=== PATIENT | female | born 1965 | race Hispanic/Latino ===

== ENCOUNTER 2022-01-21 19:43 | Emergency (ER) | payer BC, SELFPAY ==
[2022-01-21 20:41] LABS: Absolute Lymphocytes (CBC) 2.4 K/uL (0.7-4.9); Hematocrit 41.2 % (36.0-45.0); Lymphocytes % 20.5 % (15.3-44.8); MPV 7.3 fL (7.6-11.3); RBC Red Blood Cell Count 4.61 M/uL (3.86-4.86)
[2022-01-21] MEDS ORDERED: ONDANSETRON 4 MG/2 ML VIAL ONE (20:43)
[2022-01-21] MEDS ORDERED: MORPHINE 4 MG/ML SYR ONE (20:43)
[2022-01-21] MEDS ORDERED: NA CHLORIDE 0.9% 1,000 ML ONE (20:43)
[2022-01-21 20:47] LABS: Protime INR 1.05
[2022-01-21 20:58] LABS: Albumin 3.7 g/dL (3.4-5.0); Bilirubin Direct 0.1 mg/dL (0-0.2); Bilirubin Total 0.3 mg/dL (0.2-1.0); Potassium 4.3 mmol/L (3.5-5.1); Protein, Total 7.9 g/dL (6.4-8.2)
--- NOTE | 2022-01-21 21:08 | RAD REPORT ---
EXAM DESCRIPTION: RAD - Ankle Right 3 View - 01/21/2022 9:00 pm CLINICAL HISTORY: trauma COMPARISON: No comparisons FINDINGS/IMPRESSION: No acute fracture. No malalignment. Calcaneal spurring.
--- NOTE | 2022-01-21 21:08 | RAD REPORT ---
EXAM DESCRIPTION: RAD - Forearm Left - 01/21/2022 9:00 pm CLINICAL HISTORY: trauma COMPARISON: No comparisons FINDINGS/IMPRESSION: Distal radial metaphyseal fracture which is impacted. This is nondisplaced.
--- NOTE | 2022-01-21 21:09 | RAD REPORT ---
EXAM DESCRIPTION: RAD - Tib Fib Right - 01/21/2022 9:01 pm CLINICAL HISTORY: trauma COMPARISON: No comparisons FINDINGS: No acute fracture. No malalignment. No significant focal degenerative changes. IMPRESSION: No acute osseous abnormality involving the tibia or fibula.
--- NOTE | 2022-01-21 21:52 | RAD REPORT ---
EXAM DESCRIPTION: CT - Head Brain Wo Cont - 01/21/2022 9:38 pm CLINICAL HISTORY: TRAUMA COMPARISON: No comparisons TECHNIQUE: All CT scans are performed using dose optimization technique as appropriate and may inclu de automated exposure control or mA/KV adjustment according to patient size. FINDINGS: No intracranial hemorrhage, hydrocephalus or extra-axial fluid collection.No areas of brai n edema or evidence of midline shift. The paranasal sinuses and mastoids are clear. The calvarium is intact. IMPRESSION: No acute intracranial abnormality.
--- NOTE | 2022-01-21 21:54 | RAD REPORT ---
EXAM DESCRIPTION: CT - C Spine Wo Con - 01/21/2022 9:38 pm CLINICAL HISTORY: TRAUMA COMPARISON: No comparisons TECHNIQUE: CT Scan was obtained of the cervical spine without contrast. Reformats were provided in t he sagittal and coronal plane. FINDINGS: No acute fracture of the cervical spine. No traumatic malalignment. No prevertebral edema. Mild cervical spondylosis. Of note, there is a posterior disc osteophyte complex at the C5-6 level w hich results in mild central spinal stenosis. Neural foraminal narrowing is also noted at this level. No suspicious thyroid nodules or lymphadenopathy. The lung apices are clear. IMPRESSION: No fracture or traumatic malalignment of the cervical spine.
--- NOTE | 2022-01-21 21:57 | RAD REPORT ---
EXAM DESCRIPTION: CT - Thorax W/ Con - 01/21/2022 9:38 pm CLINICAL HISTORY: TRAUMA COMPARISON: <Comparisons> FINDINGS: Chest Wall: No suspicious thyroid nodules or pathologic lymphadenopathy. Lungs: No acute abnormality. Pleura: No significant effusions or pneumothorax. Mediastinum/kaylee: No pathologic lymphadenopathy. Pulmonary arteries/Aorta: No filling defect identified. No aortic aneurysm. Heart: No significant pericardial effusion. Normal heart size. Bones: No acute abnormality. All CT scans are performed using dose optimization technique as appropriate and may include automated exposure control or mA/KV adjustment according to patient size. IMPRESSION: No evidence of significant trauma to the chest .
--- NOTE | 2022-01-21 22:02 | RAD REPORT ---
EXAM DESCRIPTION: CTAbdomen Pelvis W Contrast - 01/21/2022 9:38 pm CLINICAL HISTORY: TRAUMA COMPARISON: No comparisonsNo comparisons TECHNIQUE: CT of the abdomen and pelvis was performed. All CT scans are performed using dose optimization technique as appropriate and may include automated exposure control or mA/KV adjustment according to patient size. FINDINGS: Lower chest: No acute abnormality. Liver: Hepatic steatosis. Biliary: Cholecystectomy. Stomach: No significant focal abnormality. Duodenum: No significant focal abnormality. Pancreas: No significant abnormality. Spleen: No significant abnormality. Adrenal: No suspicious lesions. Kidney/ureter: No hydronephrosis. No renal calculi. Retroperitoneum: No retroperitoneal adenopathy. Vascular: No aneurysm. Bowel: No significant focal abnormality. Normal appendix. Peritoneum: No ascites or free air. Bladder: Grossly unremarkable. Reproductive: Cystic structure in the adnexa measuring 5.4 cm is simple in attenuation. It is in the rectouterine pouch. Bones: No acute fracture. Other: n/a IMPRESSION: No evidence of significant trauma to the abdomen or pelvis. Simple appearing cystic structure in the pelvis. By CT, it appears to be simple fluid and likely repr esenting a cyst. It may be adnexal in etiology. The patient should have a nonemergent pelvic ultrasou nd for further evaluation.
[2022-01-21 22:48] LABS: Urine Blood Negative (Negative); Urine Glucose Negative (Negative); Urine Protein Negative (Negative); Urine Specific Gravity 1.015 (1.005-1.030)
[2022-01-21 22:50] LABS: Urine Blood Negative (Negative); Urine Glucose Negative (Negative); Urine Protein Negative (Negative); Urine Specific Gravity 1.015 (1.005-1.030)
[2022-01-21] MEDS ORDERED: TETANUS & DIPHTHERIA TOX,ADULT 0.5 ML VIAL ONE (23:07)
--- NOTE | 2022-01-21 23:11 | ER ---
Nurse's Notes [facility] Name: Gabriella Sims Age: 57 yrs Sex: Female : 1965 Arrival Date: 01/21/2022 Time: 19:45 Bed 4 Private MD: Diagnosis: Fall (on) (from) other stairs and steps;Distal radius Fracture;Contusion of left lower leg;Contusion of right ankle Presentation: 01/21 19:46 Chief complaint: Patient states: "I was walking down the stairs at the [facility] and as6 the platform broke. Me and my fell about 10 feet" pt c/o left leg pain, left arm pain. pt states she did hit her head but denies LOC. Coronavirus screen: At this time, the client does not indicate any symptoms associated with coronavirus-19. Ebola Screen: No symptoms or risks identified at this time. Initial Sepsis Screen: Does the patient meet any 2 criteria? No. Patient's initial sepsis screen is negative. Does the patient have a suspected source of infection? No. Patient's initial sepsis screen is negative. Risk Assessment: Do you want to hurt yourself or someone else? Patient reports no desire to harm self or others. Onset of symptoms was January 21, 2022. 19:46 Method Of Arrival: EMS: [facility] as6 19:46 Acuity: JOB 2 as6 19:52 Care prior to arrival: None. Mechanism of Injury: Fall from 1st story approximately 10 as6 feet. Trauma event details: Injury occurred: at home. Trauma Activation: Alert Physician: ED Physician; Name: ; Notified At: ; Arrived At: Physician: General Surgeon; Name: ; Notified At: ; Arrived At: Physician: Radiology; Name: ; Notified At: ; Arrived At: Physician: Respiratory; Name: ; Notified At: ; Arrived At: Physician: Lab; Name: ; Notified At: ; Arrived At: Historical: - Allergies: 19:51 Lortab; as6 - Home Meds: 19:51 [place] Thyroid 30 mg Oral tab 1 tab once daily [Active]; as6 - PMHx: 19:51 Hypothyroidism; as6 - PSHx: 19:51 section; Cholecystectomy; as6 - Immunization history:: Client reports receiving the 2nd dose of the Covid vaccine, moderna. - Social history:: Smoking status: Patient denies any tobacco usage or history of. - Immunization history: Last tetanus immunization: unknown. Screenin:52 Abuse screen: Denies threats or abuse. Denies injuries from another. Nutritional as6 screening: No deficits noted. Tuberculosis screening: No symptoms or risk factors identified. Fall Risk Fall in past 12 months (25 points). Total Robison Fall Scale indicates Low Risk Score (25-44 pts). Fall prevention measures have been instituted. Side Rails Up X 2 Frequent Obs/Assesments occuring As available Patient and Family Educated on Fall Prevention Program and strategies. Primary Survey: 19:57 NO uncontrolled hemorrhage observed. A: The patient is alert. Airway: patent. as6 Breathing/Chest: Respiratory pattern: regular, Respiratory effort: spontaneous. Circulation: Pulses: palpable . Disability Alert. Exposure/Environment: A warming method has been applied: A warm blanket has been provided to the patient. Reassessment Airway Airway Patent Breathing/Chest Respiratory pattern Regular Respiratory effort Spontaneous Circulation Pulses Palpable Disability Alert. Assessment: 19:56 General: Appears in no apparent distress. uncomfortable, Behavior is cooperative, as6 anxious. Pain: Complains of pain in left arm and left leg. Neuro: Level of Consciousness is awake, alert, obeys commands, Oriented to person, place, time, situation. Cardiovascular: Capillary refill < 3 seconds Patient's skin is warm and dry. Respiratory: Airway is patent Trachea midline Respiratory effort is even, unlabored, Respiratory pattern is regular, symmetrical. Musculoskeletal: Reports pain in left arm and left leg. 20:02 General: placed c-collar on pt. pt removed c-collar herself saying "my neck isn't as6 hurting, I don't want to wear this" educated pt on importance of wearing c-collar, pt still refused . Vital Signs: 19:46 BP 178 / 83; Pulse 102; Resp 20 S; Temp 98.7(O); Pulse Ox 97% on R/A; Weight 99.79 kg as6 (R); Height 5 ft. 1 in. (154.94 cm) (R); Pain 6/10; 20:53 BP 134 / 78; Pulse 100; Resp 19 S; Pulse Ox 97% on R/A; as6 22:07 BP 118 / 41; Pulse 95; Resp 18 S; Pulse Ox 95% on R/A; as6 23:00 BP 121 / 66; Pulse 94; Resp 18 S; Pulse Ox 100% on R/A; as6 19:46 Body Mass Index 41.57 (99.79 kg, 154.94 cm) as6 Jacob Coma Score: 19:58 Eye Response: spontaneous(4). Verbal Response: oriented(5). Motor Response: obeys as6 commands(6). Total: 15. 20:53 Eye Response: spontaneous(4). Verbal Response: oriented(5). Motor Response: obeys as6 commands(6). Total: 15. 23:33 Eye Response: spontaneous(4). Verbal Response: oriented(5). Motor Response: obeys as6 commands(6). Total: 15. Trauma Score (Adult): 19:58 Eye Response: spontaneous(1); Verbal Response: oriented(1); Motor Response: obeys as6 commands(2); Systolic BP: > 89 mm Hg(4); Respiratory Rate: 10 to 29 per min(4); Jacob Score: 15; Trauma Score: 12 23:33 Eye Response: spontaneous(1); Verbal Response: oriented(1); Motor Response: obeys as6 commands(2); Systolic BP: > 89 mm Hg(4); Respiratory Rate: 10 to 29 per min(4); Jacob Score: 15; Trauma Score: 12 ED Course: 19:45 Patient arrived in ED. as6 19:45 Jamie Ray MD is Attending Physician. 7 19:46 Jani Logan RN is Primary Nurse. as6 19:51 Triage completed. as6 19:52 Arm band placed on. as6 19:58 Bed in low position. Call light in reach. Side rails up X2. Pulse ox on. NIBP on. Warm as6 blanket given. 19:58 Patient maintains SpO2 saturation greater than 95% on room air. Thermoregulation: warm as6 blanket given to patient. 21:00 Inserted saline lock: 20 gauge in left antecubital area, using aseptic technique. Blood oe collected. 21:02 Forearm Left XRAY In Process Unspecified. EDMS 21:02 Ankle Right 3 View XRAY In Process Unspecified. EDMS 21:03 Tib Fib Left XRAY In Process Unspecified. EDMS 21:03 Tib Fib Right XRAY In Process Unspecified. EDMS 21:40 Head Brain Wo Cont In Process Unspecified. EDMS 21:40 C Spine Wo Con In Process Unspecified. EDMS 21:40 Thorax W/ Con In Process Unspecified. EDMS 21:40 Abdomen In Process Unspecified. EDMS 23:33 No provider procedures requiring assistance completed. IV discontinued, intact, as6 bleeding controlled, No redness/swelling at site. Pressure dressing applied. 01/22 00:00 Orthoglass splint: Sugar tong splint applied on left arm. Sling applied to left arm. 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 Exp: kd3 12/23/2023. Lot #: [id number]. } Route: IM; Site: right deltoid; 23:34 Follow up: Response: No adverse reaction as6 Intake: 19:58 PO: 0ml; Total: 0ml. as6 23:34 IV: 1000ml; Total: 1000ml. as6 Outcome: 23:10 Discharge ordered by . mh7 23:33 Discharged to home via wheelchair, with family. as6 23:33 Condition: stable 23:33 Discharge instructions given to patient, family, Instructed on discharge instructions, follow up and referral plans. medication usage, Demonstrated understanding of instructions, follow-up care, medications, Prescriptions given X 1. 23:33 Patient's length of stay in the Emergency Department was greater than 2 hours. pending as6 dcPatient's length of stay extended due to 23:35 Patient left the ED. as6 Signatures: Dispatcher [employer] EDMS Kebede, Vladimir oe Ray, Jamie, MD MD mh7 Jani Logan RN RN as6 Edilia Camarillo RN RN kd3
--- NOTE | 2022-01-21 23:11 | EDPHYS ---
Physician Documentation [facility] Name: Gabriella Sims Age: 57 yrs Sex: Female : 1965 Arrival Date: 01/21/2022 Time: 19:45 Bed 4 Private MD: ED Physician Jamie Ray HPI: 01/21 19:58 This 57 yrs old Female presents to ER via EMS with complaints of Fall. mh7 19:58 Trauma demographics: County: The injury occurred in [place] Location of Injury: The mh7 injury occurred at home, Rental, Date: January 21, 2022. Mechanism of injury: Fall: the patient fell Fell through broken stairs, approximately approximately 10 feet, and struck sand. Associated injuries: The patient sustained injury to the head, pain, left forearm, abrasion, painful injury, left lower leg, painful injury, right ankle, abrasion, painful injury. Onset: The symptoms/episode began/occurred just prior to arrival, today. Historical: - Allergies: 19:51 Lortab; as6 - Home Meds: 19:51 [place] Thyroid 30 mg Oral tab 1 tab once daily [Active]; as6 - PMHx: 19:51 Hypothyroidism; as6 - PSHx: 19:51 section; Cholecystectomy; as6 - Immunization history:: Client reports receiving the 2nd dose of the Covid vaccine, moderna. - Social history:: Smoking status: Patient denies any tobacco usage or history of. - Immunization history: Last tetanus immunization: unknown. ROS: 19:58 Constitutional: Negative for fever, chills, and weight loss, Eyes: Negative for injury, mh7 pain, redness, and discharge, ENT: Negative for injury, pain, and discharge, Neck: Negative for injury, pain, and swelling, Cardiovascular: Negative for chest pain, palpitations, and edema, Respiratory: Negative for shortness of breath, cough, wheezing, and pleuritic chest pain, Abdomen/GI: Negative for abdominal pain, nausea, vomiting, diarrhea, and constipation, Back: Negative for injury and pain, : Negative for injury, bleeding, discharge, and swelling, Neuro: Negative for headache, weakness, numbness, tingling, and seizure, Psych: Negative for depression, anxiety, suicide ideation, homicidal ideation, and hallucinations, Allergy/Immunology: Negative for hives, rash, and allergies, Endocrine: Negative for neck swelling, polydipsia, polyuria, polyphagia, and marked weight changes, Hematologic/Lymphatic: Negative for swollen nodes, abnormal bleeding, and unusual bruising. Exam: 19:58 Constitutional: This is a well developed, well nourished patient who is awake, alert, mh7 and in no acute distress. Head/Face: Normocephalic, atraumatic. Eyes: Pupils equal round and reactive to light, extra-ocular motions intact. Lids and lashes normal. Conjunctiva and sclera are non-icteric and not injected. Cornea within normal limits. Periorbital areas with no swelling, redness, or edema. Chest/axilla: Normal chest wall appearance and motion. Nontender with no deformity. No lesions are appreciated. Cardiovascular: Regular rate and rhythm with a normal S1 and S2. No gallops, murmurs, or rubs. Normal PMI, no JVD. No pulse deficits. Respiratory: Lungs have equal breath sounds bilaterally, clear to auscultation and percussion. No rales, rhonchi or wheezes noted. No increased work of breathing, no retractions or nasal flaring. Abdomen/GI: Soft, non-tender, with normal bowel sounds. No distension or tympany. No guarding or rebound. No evidence of tenderness throughout. Back: No spinal tenderness. No costovertebral tenderness. Full range of motion. 19:58 ENT: Nares patent. No nasal discharge, no septal abnormalities noted. Tympanic membranes are normal and external auditory canals are clear. Oropharynx with no redness, swelling, or masses, exudates, or evidence of obstruction, uvula midline. Mucous membranes moist. Neck: Trachea midline, no thyromegaly or masses palpated, and no cervical lymphadenopathy. Supple, full range of motion without nuchal rigidity, or vertebral point tenderness. No Meningismus. Psych: Awake, alert, with orientation to person, place and time. Behavior, mood, and affect are within normal limits. 19:58 Musculoskeletal/extremity: Extremities: noted in the left forearm: abrasion, pain, tenderness, noted in the left lower leg: tenderness, noted in the right ankle: abrasion, tenderness, ROM: intact in all extremities, Circulation is intact in all extremities. Sensation intact. Compartment Syndrome exam of affected extremity: is normal. no numbness, no tingling, no sensation deficit, no palor, no weak pulses, Joints: the right ankle displays painful range of motion, tenderness, Calves: have equal circumference, are tender, on left. 19:58 Skin: injury, abrasion(s), very small abrasion noted, of the left forearm, right ankle. 19:58 Neuro: Orientation: is normal, Mentation: is normal, Memory: is normal, Cranial nerves: grossly normal, Cerebellar function: is grossly normal, Motor: is normal, Sensation: is normal, Gait: not tested. seizure activity, is not displayed by the patient, Abnormal movements: there are no abnormal movements. Vital Signs: 19:46 BP 178 / 83; Pulse 102; Resp 20 S; Temp 98.7(O); Pulse Ox 97% on R/A; Weight 99.79 kg as6 (R); Height 5 ft. 1 in. (154.94 cm) (R); Pain 6/10; 20:53 BP 134 / 78; Pulse 100; Resp 19 S; Pulse Ox 97% on R/A; as6 22:07 BP 118 / 41; Pulse 95; Resp 18 S; Pulse Ox 95% on R/A; as6 23:00 BP 121 / 66; Pulse 94; Resp 18 S; Pulse Ox 100% on R/A; as6 19:46 Body Mass Index 41.57 (99.79 kg, 154.94 cm) as6 [place] Coma Score: 19:58 Eye Response: spontaneous(4). Verbal Response: oriented(5). Motor Response: obeys as6 commands(6). Total: 15. 20:53 Eye Response: spontaneous(4). Verbal Response: oriented(5). Motor Response: obeys as6 commands(6). Total: 15. 23:33 Eye Response: spontaneous(4). Verbal Response: oriented(5). Motor Response: obeys as6 commands(6). Total: 15. Trauma Score (Adult): 19:58 Eye Response: spontaneous(1); Verbal Response: oriented(1); Motor Response: obeys as6 commands(2); Systolic BP: > 89 mm Hg(4); Respiratory Rate: 10 to 29 per min(4); Jacob Score: 15; Trauma Score: 12 23:33 Eye Response: spontaneous(1); Verbal Response: oriented(1); Motor Response: obeys as6 commands(2); Systolic BP: > 89 mm Hg(4); Respiratory Rate: 10 to 29 per min(4); Jacob Score: 15; Trauma Score: 12 Procedures: 23:00 Splinting: Splint applied to left forearm using Orthoglass splint, applied by tech. 7 Examined by me, post splint application: neurovascular intact, 2+ distal pulses palpable, brisk capillary refill noted, Patient tolerated well. MDM: 23:08 Differential diagnosis: closed head injury, extremity fracture, C spine fracture. Data [facility] reviewed: vital signs, nurses notes, EMS record, lab test result(s), CBC, electrolytes, radiologic studies, CT scan, plain films. Data interpreted: Pulse oximetry: on room air is 96 %. Interpretation: normal. Counseling: I had a detailed discussion with the patient and/or guardian regarding: the historical points, exam findings, and any diagnostic results supporting the discharge/admit diagnosis, lab results, radiology results, the need for outpatient follow up, a orthopedic surgeon, to return to the emergency department if symptoms worsen or persist or if there are any questions or concerns that arise at home. Response to treatment: the patient's symptoms have markedly improved after treatment. 23:10 Patient medically screened. 01/21 19:48 Order name: Basic Metabolic Panel; Complete Time: 21:20 [facility] 01/21 19:48 Order name: CBC with Diff; Complete Time: 21:20 [facility] 01/21 19:48 Order name: LFT's; Complete Time: 21:20 [facility] 01/21 19:48 Order name: Protime (+inr); Complete Time: 21:20 [facility] 01/21 19:48 Order name: Ptt, Activated; Complete Time: 21:20 [facility] 01/21 19:48 Order name: Forearm Left XRAY; Complete Time: 21:20 [facility] 01/21 19:48 Order name: Ankle Right 3 View XRAY; Complete Time: 21:20 [facility] 01/21 19:48 Order name: Tib Fib Left XRAY; Complete Time: 21:20 [facility] 01/21 19:48 Order name: Tib Fib Right XRAY; Complete Time: 21:20 [facility] 01/21 19:58 Order name: Head Brain Wo Cont; Complete Time: 21:54 EDMS 01/21 22:48 Order name: Urine Dipstick-Ancillary; Complete Time: 23:05 EDCT 01/21 22:51 Order name: Urine Dipstick-Ancillary; Complete Time: 23:05 [facility] 01/21 19:48 Order name: Labs collected and sent; Complete Time: 20:53 7 01/21 19:51 Order name: Urine Dipstick-Ancillary (obtain specimen); Complete Time: 23:16 [facility] 01/21 19:58 Order name: C Spine Wo Con; Complete Time: 22:04 EDMS 01/21 19:58 Order name: Thorax W/ Con; Complete Time: 22:04 [facility] 01/21 19:58 Order name: Abdomen ; Complete Time: 22:04 [facility] 01/21 22:33 Order name: Splint - Sugar Tong - Forearm; Complete Time: 23:16 [facility] 01/21 22:33 Order name: Sling; Complete Time: 23:15 mh7 Administered Medications: 20:52 Drug: morphine 4 mg Route: IVP; Site: left antecubital; as6 23:34 Follow up: Response: No adverse reaction; RASS: Alert and Calm (0) as6 20:52 Drug: Zofran (Ondansetron) 4 mg Route: IVP; Site: left antecubital; as6 23:34 Follow up: Response: No adverse reaction as6 20:52 Drug: NS 0.9% 1000 ml Route: IV; Rate: 1000 ml; Site: left antecubital; as6 23:34 Follow up: Response: No adverse reaction; IV Status: Completed infusion; IV Intake: as6 1000ml 23:14 Drug: Tetanus-Diphtheria Toxoid Adult 0.5 ml {Television News Reporter: Interview. Exp: kd3 12/23/2023. Lot #: [id number]. } Route: IM; Site: right deltoid; 23:34 Follow up: Response: No adverse reaction as6 Disposition Summary: 01/21/22 23:10 Discharge Ordered Location: Home mh Problem: new mh7 Symptoms: have improved mh7 Condition: Stable mh7 Diagnosis - Fall (on) (from) other stairs and steps mh7 - Distal radius Fracture mh7 - Contusion of left lower leg mh7 - Contusion of right ankle mh7 Followup: mh7 - With: Private Physician - When: 1 - 2 days - Reason: Worsening of condition, Recheck today's complaints, Continuance of care, Re-evaluation by your physician Discharge Instructions: - Discharge Summary Sheet [facility] - Wrist Fracture Treated With Immobilization, [id number] [facility] - Cast or Splint Care, Adult, [id number] [facility] Forms: - Medication Reconciliation Form [facility] - Thank You Letter [facility] - Antibiotic Education [facility] - Prescription Opioid Use [facility] Prescriptions: - Tylenol-Codeine #3 300 mg-30 mg Oral - take 2 tablet by ORAL route every 6 hours As needed; 24 tablet; Refills: 0, mh7 Product Selection Permitted Signatures: Dispatcher [employer] EDMS Jamie Ray MD MD 7 Jani Logan RN RN as6 Edilia Camarillo RN RN kd3 Berenice Moulton PA PA sb3 Corrections: (The following items were deleted from the chart) 20:01 19:49 Head C Spine CAP W Con+CT.RAD.BRZ ordered. EDMS EDMS 20:18 19:52 Cervical Collar ordered. [facility] as6 21:04 19:49 TYPE AND SCREEN+BB.LAB.BRZ ordered. EDMS EDMS
[2022-01-22 01:38] VITALS: TEMP 98.7
[2022-01-22 01:42] VITALS: BP 121/66; O2SAT 100
== END 2022-01-21 23:35 | disposition home or self-care (01) ==
LOC: ER 19:43
PROC: 2W3DX1Z Immobilization of Left Lower Arm using Splint (ICD-10-PCS; principal; 2022-01-21)
DX: S52.502A Unspecified fracture of the lower end of left radius, initial encounter for closed fracture (principal); S80.12XA Contusion of left lower leg, initial encounter; S90.02XA Contusion of left ankle, initial encounter; W10.9XXA Fall (on) (from) unspecified stairs and steps, initial encounter; Y92.009 Unspecified place in unspecified non-institutional (private) residence as the place of occurrence of the external cause; Z23 Encounter for immunization; Z88.5 Allergy status to narcotic agent; E03.9 Hypothyroidism, unspecified
CPT/HCPCS: 96361; 85025; 80048; 36415; 85610; 80076; 85730; 81003 ×2; 70450; 72125; 71260; 74177; 73090; 73590 ×2; 73610; 90471; 90714; 96375; 96374; 99285; 29125; Q9967; J7030; J2405